=== PATIENT | male | born 1975 | race Caucasian/White ===

== ENCOUNTER 2021-02-20 18:06 | Inpatient (IN) | payer SELFPAY ==
[2021-02-20] VITALS (25 sets, daily range): BP systolic 109–156; BP diastolic 64–94; PULSE 77–102; RESP 16–26; TEMP 36.4; O2SAT 60–100
--- NOTE | ~2021-02-20 | XR_ITS ---
XR chest 1V portable 02/23/2021 06:37 Indication: Respiratory failure Procedure: AP portable chest Comparison: Comparison to multiple prior studies sequentially, with oldest reviewed study dated 02/20. Findings: Persistent diffuse bilateral interstitial infiltrates with focal left basilar consolidation . No significant effusion or pneumothorax. Heart size normal. Impression: 1: Persistent bilateral mixed interstitial and airspace infiltrates which may represent pneumonia or edema. Reviewed, dictated and finalized at location A. Impression: 1: Persistent bilateral mixed interstitial and airspace infiltrates which may r epresent pneumonia or edema.
--- NOTE | ~2021-02-20 | XR_ITS ---
EXAMINATION: XR chest ET placement, XR abdomen NG/feed tube insert DATE: 02/20/2021 18:42 INDICATION: Unresponsive. Endotracheal tube and nasogastric tube placement. TECHNIQUE: 1. Frontal view of the chest was obtained. 2. AP view of the abdomen was obtained. COMPARISON: None FINDINGS: Chest: Endotracheal tube tip 3.4 cm above the juan r. No focal airspace opacities, pulmonary edema, pleural effusion or pneumothorax. Cardiomediastinal silhouette is normal. ABDOMEN: Nasogastric tube with proximal side port in the body of the stomach with distal tip near the gastric pylorus. Cholecystectomy clips in the right upper quadrant. No dilated gas-filled loops of bowel to s uggest obstruction. IMPRESSION: 1. Nasogastric tube tip near the gastric pylorus. Consider withdrawal by 6-8 cm. 2. Endotracheal tube in expected position. No acute cardiopulmonary disease. Reviewed, dictated and finalized at location A. IMPRESSION: 1. Nasogastric tube tip near the gastric pylorus. Consider withdrawal by 6-8 cm . 2. Endotracheal tube in expected position. No acute cardiopulmonary disease.
--- NOTE | ~2021-02-20 | XR_ITS ---
XR chest 1V portable 02/21/2021 06:31 Indication: Respiratory failure Procedure: AP portable chest Comparison: 02/20/2021 Findings: Diffuse left-sided airspace disease. Heart size normal. Diffuse left-sided airspace disease . No significant effusion or pneumothorax. Endotracheal tube tip 4.9 cm above the juan r. NG tube in the stomach. No acute osseous abnormality. Impression: 1: Diffuse asymmetric left-sided airspace disease has progressed, compatible with pneumonia versus as ymmetric edema. Reviewed, dictated and finalized at location A. Impression: 1: Diffuse asymmetric left-sided airspace disease has progressed, compatible wi th pneumonia versus asymmetric edema.
--- NOTE | ~2021-02-20 | XR_ITS ---
XR chest 1V portable 02/22/2021 06:06 Indication: Respiratory failure Procedure: AP portable chest Comparison: Comparison to multiple prior studies sequentially, with oldest reviewed study dated 02/20. Findings: Shallow inspiration. Diffuse bilateral airspace disease. No pleural effusion or pneumothora x. No acute osseous abnormality. Impression: 1: Diffuse bilateral airspace disease may represent edema or pneumonia. Reviewed, dictated and finalized at location A. Impression: 1: Diffuse bilateral airspace disease may represent edema or pneumonia.
--- NOTE | ~2021-02-20 | CT_ITS ---
EXAMINATION: CT brain wo con DATE: 02/21/2021 02:36 INDICATION: Altered mental status TECHNIQUE: Computed tomography (CT) of the head was performed without intravenous contrast. The dose- length product was 681.00 mGy-cm. Automated exposure control and iterative reconstruction technique w ere employed. COMPARISON: CT dated 06/16/2010 FINDINGS: No acute intracranial hemorrhage, infarction, mass or mass effect. There are chronic bifron bharathi subcortical calcifications with moderate white matter disease. No ventriculomegaly or midline sinai ft. Basilar cisterns are patent. Mild mucosal thickening of the maxillary and the ethmoid sinuses. No depressed skull fractures. IMPRESSION: 1. No acute intracranial abnormality. 2: Chronic bifrontal subcortical calcifications with moderate white matter disease. Differential sondra gnosis includes tuberous sclerosis, prior infection and treated lymphoma. Correlate clinically. 3: Chronic age-related findings. Reviewed, dictated and finalized at location A. IMPRESSION: 1. No acute intracranial abnormality. 2: Chronic bifrontal subcortical calcifications with moderate white matter dis ease. Differential diagnosis includes tuberous sclerosis, prior infection and t reated lymphoma. Correlate clinically. 3: Chronic age-related findings.
--- NOTE | 2021-02-20 18:06 | ECG_ITS ---
Rate 106 ND 149 QRSd 126 QT 350 QTc 465 --[place]-- P 39 QRS 33 T 30 SINUS TACHYCARDIA INTRAVENTRICULAR CONDUCTION DELAY BASELINE ARTIFACT- I, II, III, AVR, AVL, AVF, V1-V2, V4-V6 BORDERLINE ECG Electronically Signed On 02-21-2021 17:14:13 CDT by Pillo Hernandez D.O. NO PREVIOUS ECG AVAILABLE FOR COMPARISON [facility]
--- NOTE | 2021-02-20 18:13 | PC.NURSE ---
Resp at bedside bagging pt. Pt prepped for intubation.
--- NOTE | 2021-02-20 18:19 | PC.NURSE ---
Etomidate 30 mg and Succincholine 100 mg given IVP.
--- NOTE | 2021-02-20 18:21 | PC.NURSE ---
8 ET tube placed at 27 lip. color change and breath sounds bilaterally with chest rise and fall with bagging.
--- NOTE | 2021-02-20 18:23 | PC.NURSE ---
16 fr ugarte placed.
--- NOTE | 2021-02-20 18:35 | PC.NURSE ---
[address] placement verified with auscultation.
--- NOTE | 2021-02-20 18:39 | PC.NURSE ---
Propofol infusion started at 5mcg/min.
[2021-02-20] MEDS: PROPOFOL IV EMULSION 100 ML 2.48 MG IV CONT (18:54)
[2021-02-20] MEDS: SODIUM CHLORIDE 0.9% IV 1,000 ML 999 ML IV CONT (18:54)
[2021-02-20 19:08] LABS: Add Urine Microscopic? NO; Appearance Urine Clear (Clear); Bilirubin Urine Negative (Negative); Blood Urine Negative (Negative); Color Urine Yellow (Yellow); Glucose Urine UA Negative (Negative); Ketones Urine Negative (Negative); Leukocyte Esterase Ur Negative LEU/UL (Negative); Nitrate Urine Negative (Negative); Protein Urine Negative (Negative); Specific Grav Ur 1.014 (1.001-1.035); Urobilinogen Urine Negative mg/dL (<2.0)
[2021-02-20 19:09] LABS: Basophils Percent Auto 0.5 % (0.2-1.2); Eosinophils Percent Auto 0.3 % (0-4.4); Hematocrit 45.7 % (42.0-52.0); Hemoglobin 14.9 g/dL (14.0-18.0); Immature Granulocyte Absolute 0.03 K/mm3 (0.00-0.031); Immature Granulocyte Percent A 0.4 % (0-0.5); Lymphocytes Absolute Auto 0.78 K/mm3 (0.9-3.2); Lymphocytes Percent Auto 10.6 % (18.3-44.2); Mean Corpuscular HGB Conc 32.6 g/dl (32-36); Mean Corpuscular Hemoglobin 29.5 pg (26-34); Mean Corpuscular Volume 90.5 fl (80-100); Mean Platelet Volume 9.1 fl (7.4-10.4); Monocytes Absolute Auto 0.4 K/mm3 (0.1-0.6); Monocytes Percent Auto 5.4 % (2.6-8.5); Neutrophils Absolute Auto 6.1 K/mm3 (1.3-6.7); Neutrophils Percent Auto 82.8 % (45.5-73.1); Platelet Count Result 243 k/mm3 (150-375); Red Blood Count 5.05 M/mm3 (4.6-6.20); White Blood Count 7.4 K/mm3 (4.5-10.0)
[2021-02-20 19:18] LABS: Acetaminophen < 10 ug/mL (10-30); Ammonia < 9 umol/L (9-30); Ethanol 53 mg/dL (<10); Salicylate < 1.0 mg/dL (2-20)
--- NOTE | 2021-02-20 19:21 | PC.NURSE ---
at bedside and updated on condition.
[2021-02-20 19:22] LABS: Partial Thromboplastin Time 27.5 SECONDS (22.3-36.8); Prothrombin Time 12.7 Seconds (11.1-14.7)
[2021-02-20 19:23] LABS: Lactic Acid Reflex 1.8 mmol/L (0.7-2.1)
[2021-02-20 19:28] LABS: Amphetamine Screen Urine Negative (Negative); Barbiturate Screen Urine Negative (Negative); Benzodiazepines Screen Urine Positive (Negative); Cannabinoid Screen Urine Negative (Negative); Cocaine Screen Urine Negative (Negative); Methadone Screen Urine Negative (Negative); Opiate Screen Urine Negative (Negative); Phencyclidine Screen Urine Negative (Negative)
[2021-02-20 19:35] LABS: Troponin I < 0.012 ng/mL (0.000-0.034)
[2021-02-20 19:39] LABS: Albumin Level 4.5 g/dL (3.5-5.1); Carbon Dioxide 28 mmol/L (22-30); Estimated CRCL calculation 99 ml/min; Estimated Glomerular Filt Rate > 60
[2021-02-20 20:27] LABS: Alanine Aminotransferase 28 U/L (4-50); Alkaline Phosphatase 66 U/L (38-126); Anion Gap 8 mmol/L (8-16); Aspartate Amino Transferase 34 U/L (17-59); Bilirubin,Total 1.9 mg/dL (0.2-1.3); Blood Urea Nitrogen 18 mg/dL (9-20); Calcium 8.7 mg/dL (8.4-10.2); Chloride 105 mmol/L (98-107); Creatine Kinase 106 U/L (55-170); Glucose 85 mg/dL (65-110); Potassium 3.8 mmol/L (3.4-5.0); Sodium 141 mmol/L (137-145)
[2021-02-20] MEDS: PROPOFOL IV EMULSION 100 ML 9.94 MG IV CONT (20:56)
--- NOTE | 2021-02-20 20:59 | ED.AMS ---
HPI - Altered Mental Status General Chief Complaint: Altered Mental Status Stated Complaint: unresponsive Time Seen by Provider: 02/20/21 18:36 History of Present Illness HPI narrative: Patient presents with altered mental status. History obtained from family and EMS. reports they are discussing divorce he has a history of depression anxiety. Patient believes he may have attempted to try and harm himself. Related Data Home Medications Medication Instructions Recorded Confirmed alprazolam [Xanax] 0.25 mg PO BID 02/20/21 buspirone 10 mg PO BID 02/20/21 sertraline 100 mg PO DAILY 02/20/21 Allergies Allergy/AdvReac Type Severity Reaction Status Date / Time No Known Allergies Allergy Mild Verified 02/20/21 18:58 Review of Systems Review of Systems: ROS unobtainable: Yes unobtainable due to mental status Exam Narrative: GENERAL: Well-appearing, well-nourished, somnolent HEAD: Normocephalic, atraumatic. EYES: PERRLA and EOMI. ENT: Nares clear, no rhinorrhea or epistaxis. Mucous membranes moist. NECK: Supple. No masses. No JVD CHEST: Clear to auscultation. No respiratory distress. No wheezes rales or rhonchi HEART: Regular rate and rhythm. No murmur heard. Normal peripheral pulses. ABDOMEN: Soft, nontender, nondistended, normal active bowel sounds. EXTREMITIES: Normal range of motion. No edema. SKIN: Warm, dry, no rash. NEURO: Minimal response to sternal rub minimal gag. No clonus no rigidity Course Vital Signs Vital signs: Vital Signs Pulse Rate 102 H 02/20/21 18:01 Respiratory Rate 24 H 02/20/21 18:01 Blood Pressure 132/94 H 02/20/21 18:01 Pulse Oximetry 94 02/20/21 18:01 Temperature 36.4 C 02/20/21 18:30 Pulse Rate 78 02/20/21 23:15 Respiratory Rate 18 02/20/21 22:26 Blood Pressure 126/64 02/20/21 22:26 Pulse Oximetry 98 02/20/21 23:15 Procedures Intubation Intubation #1: Intubation Date: 02/20/21 Intubation Time: 18:41 Time out performed: No sedative: Etomidate Mg Given: 30 paralytic: Succinylcholine Mg Given: 100 Laryngoscope: other Tube Size (cm): Cuffed Method of Intubation: orotracheal Number of Attempts: 1 Tube Secured Depth (cm): 29 Tube Secured Location: lips Tube Placement Confirmation: visualized tube passing through cords, equal breath sounds bilaterally, no breath sounds over epigastrium and confirmation by capnometry Patient Tolerated Procedure: no complications Intubation Complications: none MDM - Altered Mental Status MDM Narrative Medical decision making narrative: Patient brought in with altered mental status concern for overdose. Initial arrival patient was nonresponsive to noxious stimuli with minimal gag. There was concern patient was not protecting his airway so he was intubated. Labs and imaging obtained drug screen is notable for benzos and slight elevation in EtOH. Primary concern for ingestion of Zoloft at this time as patient had a prescription filled approximately 1 month ago with 90 tabs and there only 2 tabs left patient was scheduled 100 mg once a day. Patient was admitted for continued monitoring. Lab Data Result diagrams: 02/20/21 19:01 02/20/21 19:01 Labs: Lab Results 02/20/21 02/20/21 02/20/21 Range/Units 18:47 18:47 19:01 WBC 7.4 (4.5-10.0) K/mm3 RBC 5.05 (4.6-6.20) M/mm3 Hgb 14.9 (14.0-18.0) g/dL Hct 45.7 (42.0-52.0) % MCV 90.5 (80-100) fl MCH 29.5 (26-34) pg MCHC 32.6 (32-36) g/dl RDW 14.0 (11.5-14.5) % Plt Count 243 (150-375) k/mm3 MPV 9.1 (7.4-10.4) fl Immature Gran % (Auto) 0.4 (0-0.5) % Neut % (Auto) 82.8 H (45.5-73.1) % Lymph % (Auto) 10.6 L (18.3-44.2) % Clarke % (Auto) 5.4 (2.6-8.5) % Eos % (Auto) 0.3 (0-4.4) % Baso % (Auto) 0.5 (0.2-1.2) % Lymph # (Auto) 0.78 L (0.9-3.2) K/mm3 Clarke # (Auto)
[2021-02-20 21:55] LABS: Lactic Acid Reflex 1.8 mmol/L (0.7-2.1)
[2021-02-21] VITALS (23 sets, daily range): BP systolic 94–140; BP diastolic 53–79; PULSE 74–95; RESP 18–188; TEMP 36.8–37.5; O2SAT 89–99; BMI 23.3; BMI 22.6
--- NOTE | 2021-02-21 01:05 | ECG_ITS ---
Measurements Intervals [place] Rate: 77 P: 32 [place]: 134 QRS: 17 QRSD: 114 T: 37 QT: 407 QTc: 461 Interpretive Statements SINUS RHYTHM INTRAVENTRICULAR CONDUCTION DELAY BORDERLINE ECG Electronically Signed On 02-21-2021 7:26:53 CDT by Pillo Hernandez D.O.
--- NOTE | 2021-02-21 01:19 | PM.IMHP ---
H&P: HPI History of Present Illness Date/Time: 02/21/21 01:19 Chief Complaint: suicide attempt, unreponsiveness Narrative: Patient is a 46 yo male who presents to the ed with unresponsiveness. He was found unresponsive at home and on the ground by his family member. Prior to that he was seen well couple of hours ago. He had open bottle and missing pills by the side. EMS was called and was brought to the ED backing him. In the ED he was unresponsive to noxious stimuli with minimal gag and with concern for not able to protect his airways he was intubated. in the ER reported they are going through divorce and separation and he has underlying history of depression and anxiety. He was noted to be missing 2 pills of his Rusty accepts but large amount of Zoloft tablets missing which he feels about a month ago with 90 tablets of 100 mg. He also has taken an unknown amount of buspirone tablets. Family suspects that he was likely attempted to harm himself. He was intubated and was placed on propofol because of agitation. He was also noted to have slight elevation in his alcohol level in the ER. He is admitted to the ICU for further evaluation and management. Past medical history: Anxiety depression Family history: Unknown Social history: Unknown Review of Systems Review of Systems: ROS unobtainable: Yes unobtainable due to endotracheal tube and unobtainable due to mental status Meds Home Medications and Allergies Home Medications Medication Instructions Recorded Confirmed Type alprazolam [Xanax] 0.25 mg PO BID 02/20/21 History buspirone 10 mg PO BID 02/20/21 History sertraline 100 mg PO DAILY 02/20/21 History Allergies Allergy/AdvReac Type Severity Reaction Status Date / Time No Known Allergies Allergy Mild Verified 02/20/21 18:58 Vital Signs Vital Signs - 24 hr 02/20/21 18:01 02/20/21 18:15 02/20/21 18:21 Temperature Pulse Rate 102 H 95 99 Respiratory Rate 24 H 21 H Blood Pressure 132/94 H 145/85 H Pulse Oximetry 94 93 100 02/20/21 18:30 02/20/21 18:45 02/20/21 18:48 Temperature 97.6 F Pulse Rate 92 86 85 Respiratory Rate 22 H 24 H 22 H Blood Pressure 156/88 H 146/89 H Pulse Oximetry 100 99 08/15/21 18:54 02/20/21 19:00 02/20/21 19:15 Temperature Pulse Rate 85 84 84 Respiratory Rate 22 H 19 18 Blood Pressure 141/91 H 150/91 H Pulse Oximetry 100 100 02/20/21 19:24 02/20/21 19:30 02/20/21 19:31 Temperature Pulse Rate 85 84 85 Respiratory Rate 18 18 18 Blood Pressure 148/91 H Pulse Oximetry 100 100 93 02/20/21 19:50 02/20/21 19:54 02/20/21 20:20 Temperature Pulse Rate 80 79 79 Respiratory Rate 16 16 18 Blood Pressure 135/88 126/64 Pulse Oximetry 60 L 100 100 02/20/21 20:24 02/20/21 20:50 02/20/21 20:51 Temperature Pulse Rate 79 77 82 Respiratory Rate 18 26 H 16 Blood Pressure 137/91 H 109/70 Pulse Oximetry 100 99 100 02/20/21 20:56 02/20/21 21:00 02/20/21 21:02 Temperature Pulse Rate 82 84 78 Respiratory Rate 18 22 H 20 Blood Pressure Pulse Oximetry 02/20/21 21:03 02/20/21 21:11 02/20/21 22:26 Temperature Pulse Rate 78 77 80 Respiratory Rate 20 19 18 Blood Pressure 123/67 126/64 Pulse Oximetry 98 99 100 02/20/21 23:15 Temperature Pulse Rate 78 Respiratory Rate Blood Pressure Pulse Oximetry 98 Exam Narrative: GENERAL: Well-appearing, well-nourished, sedated and intubated HEAD: Normocephalic, atraumatic. EYES: PERRLA ENT: Nares clear, no rhinorrhea or epistaxis. Mucous membranes moist. NECK: Supple. No masses. No JVD CHEST: Clear to auscultation. Bilateral equal in air entry on vent No respiratory distress. HEART: Regular rate and rhythm. No murmur heard. Normal peripheral pulses. ABDOMEN: Soft, nontender, nondistended, normal active bowel sounds. EXTREMITIES: Normal range of motion. No edema. SKIN: Warm, dry, no rash. NEURO: Sedated on vent H&P: Results Labs Labs: Short CBC
[2021-02-21 01:38] LABS: Alveolar/Arterial O2 Gradient 387.7 mmHg; Base Excess ABG -0.6 mEq/l (+/-2.0); Fractional Inspired Oxygen 70 %; HCO3 ABG 22.7 mEq/l (22.0-26.0); Oxygen Content ABG 21.1 %vol (16.0-22.0); Oxygen Saturation ABG 95.7 % (95.0-100.0); Oxyhemoglobin 94.8 % THb (90.0-100.0); PCO2 ABG 33.9 mmHg (35.0-45.0); PO2 FiO2 Ratio Arterial Blood 1.07 %; Total Hemoglobin 15.8 g/dL (12.0-18.0); pH ABG 7.443 (7.350-7.450)
[2021-02-21 01:40] LABS: Device VENTILATOR; Modified Allen's Test Pass; Site Drawn RIGHT RADIAL
[2021-02-21 01:41] LABS: Arterial Blood Gas PEEP 5 cmH2O; Arterial Blood Gas Tidal Volume 480 ml; Arterial Blood Gas Vent Mode CMV; Arterial Blood Gas Ventilator rate 18 /MIN
--- NOTE | 2021-02-21 06:00 | ECG_ITS ---
Measurements Intervals [place] Rate: 84 P: 23 [place]: 134 QRS: 24 QRSD: 112 T: 30 QT: 376 QTc: 444 Interpretive Statements SINUS RHYTHM INTRAVENTRICULAR CONDUCTION DELAY BORDERLINE ECG Electronically Signed On 03-17-2021 12:37:30 CDT by Pillo Hernandez D.O.
[2021-02-21] MEDS: PROPOFOL IV EMULSION 100 ML 9.94 MG IV CONT (07:46)
[2021-02-21] MEDS: ENOXAPARIN 40 MG/0.4 ML SYRINGE SUB-Q (08:45)
[2021-02-21] MEDS: DEXTROSE 5%/0.45% SOD CHL 1,000 ML 100 ML IV CONT (11:11)
[2021-02-21] MEDS: FAMOTIDINE 20 MG TABLET FEED TUBE (13:08)
--- NOTE | 2021-02-21 15:00 | ECG_ITS ---
Measurements Intervals [place] Rate: 106 P: 39 [place]: 149 QRS: 33 QRSD: 126 T: 30 QT: 350 QTc: 465 Interpretive Statements SINUS TACHYCARDIA INTRAVENTRICULAR CONDUCTION DELAY BASELINE ARTIFACT- I, II, III, AVR, AVL, AVF, V1-V2, V4-V6 BORDERLINE ECG Electronically Signed On 02-21-2021 17:14:13 CDT by Pillo Hernandez D.O.
--- NOTE | 2021-02-21 15:31 | WPDCNINT ---
Assessment and Plan Assessment and plan (1) Acute respiratory failure: Code(s): J96.00 - Acute respiratory failure, unspecified whether with hypoxia or hypercapnia Status: Acute Assessment and Plan: Acute Respiratory failure secondary to drug overdose and toxic encephalopathy chest x-ray also suggests aspiration pneumonia Continue full mechanical ventilation support to prevent hypoxemia/hypercarbia and end organ damage. ABG and PCXR reviewed and will repeat in am. Low tidal volume ventilation strategy to prevent volutrauma Will attempt SBT when mental status improved (2) Suicide attempt: Code(s): T14.91XA - Suicide attempt, initial encounter Status: Acute Assessment and Plan: currently sedated intubated once extubated he will have a one-to-one sitter (3) Anxiety and depression: Code(s): F41.9 - Anxiety disorder, unspecified; F32.9 - Major depressive disorder, single episode, unspecified Status: Acute Assessment and Plan: not sure if patient was compliant with his medications at home psych evaluation once patient is extubated and medically stable (4) Drug overdose, multiple drugs: Code(s): T50.911A - Poisoning by multiple unspecified drugs, medicaments and biological substances, accidental (unintentional), initial encounter Status: Acute Assessment and Plan: continue supportive care currently sedated and on mechanical ventilation EKG reviewed QTC and QRS are prolonged but not enough to justify treatment. q.6 hours EKG ordered to monitoring on clinical exam patient does not exhibit any signs of says certain syndrome (5) Toxic encephalopathy: Code(s): G92 - Toxic encephalopathy Status: Acute Assessment and Plan: secondary to drug overdose intubated for airway protection head CT was negative Additional Plan DVT prophylaxis - Lovenox Stress ulcer prophylaxis - and Pepcid Nutrition - NPO Code Status - Full Code Patient's updated at bedside Total Critical Care Time - 30 minutes Due to a high probability of clinically significant, life threatening deterioration, the patient required my highest level of preparedness to intervene emergently and I personally spent this critical care time directly and personally managing the patient. This critical care time included obtaining a history; examining the patient; pulse oximetry; ordering and review of studies; arranging urgent treatment with development of a management plan; evaluation of patient's response to treatment; frequent reassessment; and discussions with other providers. It was exclusive of separately billable procedures and treating other patients and teaching time. Please see Assessment and Plan section and the rest of the note for further information on patient assessment and treatment Director [employer] Consult Note Consult date: 02/21/21 Time Seen: 07:30 HPI: Marco Canas is a 46 year old male with past medical history of depression and bariatric surgery was brought in to ED by EMS for unresponsiveness. patient had argument with his and later his found him unresponsive in his bedroom. she noticed saliva coming out his mouth and small amount of vomitus around him. She states the patient has been depressed and they have been having marital problems. she she claims the patient was taking his medications regularly. a bottle of Xanax which was many years old was found with him and his thinks they were probably 10 pills in it. Also approximately 90 tablets of Zoloft were missing from his bottle.. On arrival to ER his workup was unremarkable patient was unresponsive and was not protecting his airway. he was intubated in the ED and was started on propofol for sedation. head CT was negative and poison Control was contacted. He also had elevated alcohol level and UDS was positive for benzodiazepines. Patient was admitted to ICU for further evaluation man
[2021-02-21 18:12] LABS: Alveolar/Arterial O2 Gradient 220.1 mmHg; Fractional Inspired Oxygen 50 %; HCO3 ABG 26.2 mEq/l (22.0-26.0); Oxygen Content ABG 21.4 %vol (16.0-22.0); Oxygen Saturation ABG 96.5 % (95.0-100.0); PCO2 ABG 43.9 mmHg (35.0-45.0); PO2 FiO2 Ratio Arterial Blood 1.74 %; Total Hemoglobin 15.8 g/dL (12.0-18.0); pH ABG 7.394 (7.350-7.450)
[2021-02-21 18:13] LABS: Site Drawn LEFT RADIAL
[2021-02-21 18:14] LABS: Device VENTILATOR; Modified Allen's Test Pass
[2021-02-21 18:15] LABS: Arterial Blood Gas PEEP 5 cmH2O; Arterial Blood Gas Vent Mode SPONTANEOUS
[2021-02-21 18:16] LABS: Arterial Blood Gas Pressure Support 5 cmH2O
--- NOTE | 2021-02-21 18:43 | PC.NURSE ---
1835-Pt. extubated and put onto 4LNC. VSS. Will continue to monitor.
[2021-02-21] MEDS: SODIUM BICARBONATE 8.4% 50 MEQ/50 ML SYRINGE 100 MEQ IV PUSH (18:45)
--- NOTE | 2021-02-21 21:40 | ECG_ITS ---
Rate 89 [place] 136 QRSd 116 QT 376 QTc 460 --[place]-- P 6 QRS -4 T 28 SINUS RHYTHM INTRAVENTRICULAR CONDUCTION DELAY BORDERLINE ECG Electronically Signed On 02-22-2021 11:19:37 CDT by Pillo Hernandez D.O. COMPARED TO ECG 02/21/2021 14:59:54 NO SIGNIFICANT CHANGES MTDD
[2021-02-21] MEDS: FAMOTIDINE 20 MG TABLET PO (22:25)
[2021-02-21] MEDS: ACETAMINOPHEN 325 MG TABLET 650 MG PO (23:34)
[2021-02-22] VITALS (15 sets, daily range): BP systolic 105–131; BP diastolic 69–84; PULSE 70–92; RESP 18–27; TEMP 36.9–37.1; O2SAT 93–100
[2021-02-22 00:30] LABS: Alveolar/Arterial O2 Gradient 165.5 mmHg; Base Excess ABG 3.9 mEq/l (+/-2.0); Carboxyhemoglobin 0.3 % THb (0-2.0); Fractional Inspired Oxygen 44 %; HCO3 ABG 29.4 mEq/l (22.0-26.0); Methemoglobin ABG 0.5 %THb (0-1.5); Oxygen Content ABG 20.5 %vol (16.0-22.0); Oxygen Saturation ABG 97.3 % (95.0-100.0); Oxyhemoglobin 96.1 % THb (90.0-100.0); PO2 ABG 94.6 mmHg (80.0-100.0); PO2 FiO2 Ratio Arterial Blood 2.15 %; Reduced Hemoglobin 3.1 %THb (0-5.0); Total Hemoglobin 15.1 g/dL (12.0-18.0); pH ABG 7.414 (7.350-7.450)
[2021-02-22 00:31] LABS: Device NASAL CANNULA; Modified Allen's Test Pass; Site Drawn RIGHT RADIAL
[2021-02-22] MEDS: DEXTROSE 5%/0.45% SOD CHL 1,000 ML 100 ML IV CONT (03:05)
[2021-02-22 04:34] LABS: Hematocrit 40.6 % (42.0-52.0); Hemoglobin 13.7 g/dL (14.0-18.0); Mean Corpuscular HGB Conc 33.7 g/dl (32-36); Mean Corpuscular Hemoglobin 29.7 pg (26-34); Mean Corpuscular Volume 88.1 fl (80-100); Mean Platelet Volume 9.8 fl (7.4-10.4); Platelet Count Result 230 k/mm3 (150-375); Red Blood Count 4.61 M/mm3 (4.6-6.20); Red Cell Distribution Width 13.9 % (11.5-14.5); White Blood Count 16.4 K/mm3 (4.5-10.0)
[2021-02-22 04:45] LABS: Alanine Aminotransferase 20 U/L (4-50); Albumin Level 3.6 g/dL (3.5-5.1); Alkaline Phosphatase 63 U/L (38-126); Anion Gap 6 mmol/L (8-16); Aspartate Amino Transferase 24 U/L (17-59); Bilirubin,Total 3.4 mg/dL (0.2-1.3); Blood Urea Nitrogen 25 mg/dL (9-20); Calcium 8.6 mg/dL (8.4-10.2); Carbon Dioxide 29 mmol/L (22-30); Chloride 101 mmol/L (98-107); Estimated CRCL calculation 93 ml/min; Estimated Glomerular Filt Rate > 60; Glucose 110 mg/dL (65-110); Potassium 3.4 mmol/L (3.4-5.0); Sodium 136 mmol/L (137-145)
--- NOTE | 2021-02-22 06:46 | ECG_ITS ---
Rate 77 [place] 139 QRSd 122 QT 401 QTc 456 --[place]-- P 15 QRS 0 T 28 SINUS RHYTHM INTRAVENTRICULAR CONDUCTION DELAY BASELINE ARTIFACT- I, II BORDERLINE ECG Electronically Signed On 02-22-2021 10:05:57 CDT by Pillo Hernandez D.O. COMPARED TO ECG 02/21/2021 21:40:16 NO SIGNIFICANT CHANGES MTDD
[2021-02-22] MEDS: SODIUM BICARBONATE 8.4% 50 MEQ/50 ML SYRINGE 100 MEQ IV PUSH (08:00)
[2021-02-22] MEDS: ENOXAPARIN 40 MG/0.4 ML SYRINGE SUB-Q (09:50)
--- NOTE | 2021-02-22 10:35 | WPDINTPN ---
Progress Note: A&P Assessment and Plan (1) Acute respiratory failure: Code(s): J96.00 - Acute respiratory failure, unspecified whether with hypoxia or hypercapnia Status: Acute Assessment and Plan: Acute Respiratory failure secondary to drug overdose and toxic encephalopathy chest x-ray also suggests aspiration pneumonia patient was extubated yesterday and maintaining saturation on nasal cannula incentive spirometry and up in chair I ordered benzocaine and menthol lozenges p.r.n. for sore throat (2) Suicide attempt: Code(s): T14.91XA - Suicide attempt, initial encounter Status: Acute Assessment and Plan: patient now has one-to-one sitter (3) Anxiety and depression: Code(s): F41.9 - Anxiety disorder, unspecified; F32.9 - Major depressive disorder, single episode, unspecified Status: Acute Assessment and Plan: not sure if patient was compliant with his medications at home psych evaluation once medically stable (4) Drug overdose, multiple drugs: Code(s): T50.911A - Poisoning by multiple unspecified drugs, medicaments and biological substances, accidental (unintentional), initial encounter Status: Acute Assessment and Plan: continue supportive care currently sedated and on mechanical ventilation EKG reviewed QTC is acceptable but QRS was slightly prolonged patient was given bicarb push as per recommendation of poison Control q.6 are EKGs are ordered otherwise clinically he has improved along with improvement in his mental status on clinical exam patient does not exhibit any signs of serotonin syndrome (5) Toxic encephalopathy: Code(s): G92 - Toxic encephalopathy Status: Acute Assessment and Plan: secondary to drug overdose head CT was negative improved and now alert oriented x3 (6) Aspiration pneumonia: Code(s): J69.0 - Pneumonitis due to inhalation of food and vomit Status: Acute Assessment and Plan: continue Zosyn Additional Plan DVT prophylaxis - Lovenox Nutrition - advance diet Code Status - Full Code transfer out of ICU today Subjective Date/time seen: 02/22/21 10:35 patient was extubated yesterday after successful weaning triall in the evening . He maintained his oxygen saturation on nasal cannula. overnight his QRS was prolonged and he was given bicarb. This morning he denies any complaints except sore throat and hoarse voice. Patient denies fever, chest pain, shortness of breath, cough, nausea vomiting, abdominal pain,, diarrhea, headache or constipation. He told me that he does not remember what pills and how many pills he took. He did admit to taking 3 different type of pills but was not forthcoming to give me any further information. Review of Systems Review of Systems: All systems reviewed & are unremarkable except as noted in HPI and below Exam Narrative: General: Pt is alert awake and in NAD Lungs/Chest: Trachea central Clear BS B/L, No crackles or wheezing. His voice is hoarse but no stridor Cardiac: RRR. Normal S1 S2. No murmurs Circulation: Pedal pulses are intact and symmetrical. Abdomen: Normal bowel sounds.. Soft. NT. ND. Extremities: No clubbing, cyanosis or edema. Warm : Temple in place Neurologic: Follows commands. Moves all 4 extremities PERRL alert oriented x3 Skin: No Rash Objective Data Vital Signs Vital Signs: Vital Signs - 24 hr 02/21/21 11:15 02/21/21 12:00 02/21/21 13:40 Temperature 37.1 C Pulse Rate 94 92 91 Respiratory Rate 22 H Blood Pressure 125/73 Pulse Oximetry 94 96 98 02/21/21 14:00 02/21/21 16:00 02/21/21 16:45 Temperature 37.2 C Pulse Rate 89 80 82 Respiratory Rate 19 20 Blood Pressure 116/68 122/76 Pulse Oximetry 97 98 98 02/21/21 18:00 02/21/21 18:35 02/21/21 20:00 Temperature Pulse Rate 91 94 Respiratory Rate 23 H 27 H Blood Pressure 140/77 112/68 Pulse Oximetry 99 96 94 08
--- NOTE | 2021-02-22 10:43 | PCDIET ---
ICU Rounding Note: Patient extubated and advanced to regular diet. Per RN, patient because nauseated earlier today, then ate a banana. Agree with regular diet, as tolerated. Last recorded weight is 74kg which is down from last review. Bowel Motility: No documented BM as of yet. Labs Reviewed: WBC (16.4), Hgb (13.7), Hct (40.6), BUN (25), Na (136) Meds Noted: Zofran prn, Zosyn, Sodium Bicarbonate Additional Notes: No documented skin breakdown. Following daily in ICU rounds. Assessing/reassessing every 3 days.
--- NOTE | 2021-02-22 13:00 | ECG_ITS ---
Rate 77 [place] 134 QRSd 117 QT 390 QTc 442 --[place]-- P 11 QRS 1 T 26 SINUS RHYTHM INTRAVENTRICULAR CONDUCTION DELAY DELAYED PRECORDIAL R/S TRANSITION BORDERLINE ECG Electronically Signed On 02-22-2021 20:07:46 CDT by Pillo Hernandez D.O. COMPARED TO ECG 02/22/2021 06:46:39 NO SIGNIFICANT CHANGES MTDD
[2021-02-22] MEDS: ACETAMINOPHEN 325 MG TABLET 650 MG PO (13:07)
[2021-02-22] MEDS: BISACODYL 5 MG TABLET EC PO (15:48)
--- NOTE | 2021-02-22 19:00 | ECG_ITS ---
Measurements Intervals [place] Rate: 72 P: 4 [place]: 134 QRS: 5 QRSD: 121 T: 28 QT: 391 QTc: 430 Interpretive Statements SINUS RHYTHM INTRAVENTRICULAR CONDUCTION DELAY BORDERLINE ECG Electronically Signed On 03-17-2021 11:05:10 CDT by Pillo Hernandez D.O.
[2021-02-23 02:00] VITALS: PULSE 70
[2021-02-23 04:00] VITALS: PULSE 70
[2021-02-23 04:50] LABS: Hematocrit 40.8 % (42.0-52.0); Mean Corpuscular HGB Conc 31.9 g/dl (32-36); Mean Corpuscular Volume 91.1 fl (80-100); Platelet Count Result 220 k/mm3 (150-375); Red Blood Count 4.48 M/mm3 (4.6-6.20); Red Cell Distribution Width 13.9 % (11.5-14.5)
[2021-02-23 05:06] LABS: Alanine Aminotransferase 20 U/L (4-50); Albumin Level 3.5 g/dL (3.5-5.1); Alkaline Phosphatase 78 U/L (38-126); Anion Gap 6 mmol/L (8-16); Aspartate Amino Transferase 23 U/L (17-59); Bilirubin,Total 3.2 mg/dL (0.2-1.3); Blood Urea Nitrogen 23 mg/dL (9-20); Calcium 9.3 mg/dL (8.4-10.2); Carbon Dioxide 29 mmol/L (22-30); Chloride 105 mmol/L (98-107); Estimated CRCL calculation 104 ml/min; Estimated Glomerular Filt Rate > 60; Glucose 90 mg/dL (65-110); Magnesium 2.1 mg/dL (1.6-2.3); Potassium 3.9 mmol/L (3.4-5.0); Sodium 140 mmol/L (137-145)
[2021-02-23 06:00] VITALS: PULSE 70
[2021-02-23] MEDS: ACETAMINOPHEN 325 MG TABLET 650 MG PO (07:41)
[2021-02-23 08:00] VITALS: BP 130/87; PULSE 66; RESP 29; TEMP 36.6; O2SAT 95
--- NOTE | 2021-02-23 08:00 | ECG_ITS ---
Measurements Intervals [place] Rate: 61 P: -6 [place]: 134 QRS: 1 QRSD: 114 T: 21 QT: 415 QTc: 421 Interpretive Statements SINUS RHYTHM INTRAVENTRICULAR CONDUCTION DELAY BASELINE WANDER- II, III BORDERLINE ECG Electronically Signed On 02-23-2021 9:04:59 CDT by Pillo Hernandez D.O.
[2021-02-23] MEDS: ENOXAPARIN 40 MG/0.4 ML SYRINGE SUB-Q (08:55)
--- NOTE | 2021-02-23 09:06 | PC.NURSE ---
PATIENT CLEARED BY POISON CONTROL 02/22/21 @ 1730.
[2021-02-23 10:00] VITALS: PULSE 63
--- NOTE | 2021-02-23 10:11 | PCDIET ---
Nutrition Follow-Up Complete: Nutrition Diagnosis: Inadequate oral intake related to oral intubation as evidenced by NPO status. Nutrition Goal: Patient to meet estimated nutritional needs. Goal not met. Patient consumed 0-10% of meals yesterday on regular diet. Patient reports nausea has resolved, but c/o sore throat from ETT and hiccups. Small, frequent meals encouraged. Dietary will also provide soft/moistened foods, upon request. Recommend adding Ensure Compact (220kcal, 10g protein) with meals. Patient agreeable. Last recorded weight is 74 kg which is stable. Bowel Motility: BM x 2 today. Labs Reviewed: WBC (14.0), RBC (4.48), Hgb (13.0), Hct (40.8), BUN (23) Meds Noted: Dulcolax prn, Miralax prn, Zosyn Additional Notes: No documented skin breakdown. Will continue to monitor with same goal. Nutrition Monitoring and Evaluation: Follow up every 3 days.
--- NOTE | 2021-02-23 11:52 | PM.DS ---
DS: Admitting Diagnosis Admitting Diagnosis Suicide attempt Acute respiratory failure DS: Discharge Diagnosis Discharge Diagnosis (1) Toxic encephalopathy: Code(s): G92 - Toxic encephalopathy Status: Acute (2) Drug overdose, multiple drugs: Code(s): T50.911A - Poisoning by multiple unspecified drugs, medicaments and biological substances, accidental (unintentional), initial encounter Status: Acute (3) Acute respiratory failure: Code(s): J96.00 - Acute respiratory failure, unspecified whether with hypoxia or hypercapnia Status: Acute (4) Suicide attempt: Code(s): T14.91XA - Suicide attempt, initial encounter Status: Acute DS: Summary Hospital Course Hospital Course: This is a 46-year-old gentleman with past medical history of depression, gastric surgery, was admitted after he was found unresponsive, after he took multiple pills of sertraline and Xanax. On arrival to the emergency department, he was not, and was intubated. He was admitted to the ICU. CT of the head was negative. He also had elevated alcohol level and urine drug screen was positive for benzodiazepines. During hospitalization he was hemodynamically stable, however chest x-ray did suggest aspiration pneumonia, he was able to wean from the ventilator and extubated the next day. Given concern for aspiration pneumonia, was initiated on Zosyn. Will discharge on Augmentin to finish a 7 day course. Supportive care was continued. At some point he had slightly prolonged QTC, communication with present bicarb was given, QTC improved. Serial EKGs were monitored. Patient clinically improved, denied any current suicidal ideation, signed contract. Stable for discharge to home. Time Spent with Patient Time attestation: Total time spent providing and/or coordinating discharge services: 25 min Exam Narrative: Gen: Alert, NAD Abd: Soft, NT, ND Heart: RRR Lungs: CTAB Ext: No lower extremity edema DS: Data Data Completed and Pending Labs on day of discharge: Labs from last 24 hours 02/23/21 02/23/21 04:30 04:30 WBC 14.0 H RBC 4.48 L Hgb 13.0 L Hct 40.8 L MCV 91.1 MCH 29.0 MCHC 31.9 L RDW 13.9 Plt Count 220 MPV 10.0 Sodium 140 Potassium 3.9 Chloride 105 Carbon Dioxide 29 Anion Gap 6 L BUN 23 H Creatinine 0.80 Estim Creat Clear Calc 104 Estimated GFR > 60 Glucose 90 Calcium 9.3 Magnesium 2.1 Total Bilirubin 3.2 H AST 23 ALT 20 Alkaline Phosphatase 78 Total Protein 6.0 L Albumin 3.5 Discharge Plan Discharge Consulting providers: Hu Negrete Discharging Clinician: Casa Woodard Patient Disposition: Home, Self-Care Activity: as tolerated Diet: regular Patient Instructions: Antibiotic Form Stand Alone Forms: General Discharge Information Follow-up/Referrals: Eron Bhatia MD [Primary Care Provider] - (Follow up within 1-2 weeks of discharge to reassess clinical stability. ) Discharge Medications: New amoxicillin-pot clavulanate [Augmentin] 875-125 mg tablet 1 tablet PO Q12H Qty: 10 RF: 0 Continued sertraline 100 mg Tablet 100 mg PO DAILY RF: 0 buspirone 10 mg Tablet 10 mg PO BID RF: 0 Date of admission: 02/20/21 21:15 Primary Care Provider: Eron Bhatia Admitting Provider: Braeden Castro Attending physician on admission: Braeden Castro Condition: Stable
== END 2021-02-23 12:56 | disposition home or self-care (01) | DRG 812 ==
LOC: ANHED 21:25 → ANHICU 02-23 12:03
PROVIDERS: Internal Medicine; Admitting Provider Internal Medicine; Emergency Provider Emergency Medicine; PCP Family Medicine Adolescent Medicine; Visit Provider Internal Medicine Nephrology
DX: T43.222A Poisoning by selective serotonin reuptake inhibitors, intentional self-harm, initial encounter (principal); T42.4X2A Poisoning by benzodiazepines, intentional self-harm, initial encounter; J96.00 Acute respiratory failure, unspecified whether with hypoxia or hypercapnia; J69.0 Pneumonitis due to inhalation of food and vomit; G92 Toxic encephalopathy; F41.9 Anxiety disorder, unspecified; F32.9 Major depressive disorder, single episode, unspecified
CPT/HCPCS: 31500; 36415; 36600; 70450; 71045; 80053; 80307; 81003; 82140; 82248; 82375; 82550; 82805; 83050; 83605; 83735; 84443; 84484; 85025; 85027; 85610; 85730; 93005; 94002; 94003; 96361; 96374; 99285; A9270; J1650; J2543; J2704; J7030

== ENCOUNTER 2023-06-21 07:24 | Day surgery (SDC) | payer OTHER, SELFPAY ==
[2023-05-25 10:26] VITALS: BMI 31.9
[2023-06-14 11:51] VITALS: BMI 29.2
[2023-06-21 08:39] VITALS: BP 141/98; PULSE 73; RESP 16; TEMP 36.3; O2SAT 99
[2023-06-21] MEDS: LACTATED RINGERS 1,000 ML 150 ML IV CONT (08:54)
--- NOTE | 2023-06-21 09:03 | PM.HPGS ---
History of Present Illness History of Present Illness Consent: Risks, benefits, and alternatives have been discussed and questions answered. Patient agrees to proceed with procedure. Chief complaint: Neoplasm Screening Narrative: Marco Canas is a 48 year old male Presents for screening colonoscopy. Patient's current weight appetite and bowel movements are normal. Patient denies abdominal pain. He has had no bleeding. Family history noncontributory. Review of Systems Review of Systems: Review of systems noncontributory. 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 Suicide attempt (02/2021) Surgical History Surgical History Bariatric surgery status History of bilateral carpal tunnel release Family History Family History (Updated 05/23/23 @ 10:14 by Wendy Alexander APRN) Mother Anemia Social History Social History Smoking status: Former smoker Tobacco type: cigarettes Second hand tobacco smoke exposure: Yes Alcohol intake: former Drinks per week: 1 Substance use: unknown Living arrangements: with family Spiritual care concerns: No Meds Home Medications and Allergies Home Medications Medication Instructions Recorded Confirmed Type needle (disp) 27 gauge 27 gauge x #100 ea 05/23/23 05/23/23 Rx 1 1/2 (BD PrecisionGlide) syringe with needle 3 mL 20 gauge #100 ea 05/23/23 05/23/23 Rx x 1 1/2 (BD Luer-Huong Syringe) testosterone cypionate 200 mg/mL 200 mg IM .every 2 weeks #10 mL 06/14/23 06/21/23 Rx intramuscular oil Allergies Allergy/AdvReac Type Severity Reaction Status Date / Time No Known Allergies Allergy Mild Verified 06/21/23 08:38 Vital Signs Vital Signs - 24 hr 06/21/23 08:39 Temperature 97.4 F L Pulse Rate 73 Respiratory Rate 16 Blood Pressure 141/98 H Pulse Oximetry 99 Oxygen Delivery Room Air Exam Narrative: physical exam reveals patient to be alert. Signs stable. HEENT exam is unremarkable. Patient is anicteric. Lungs are clear to auscultation and to percussion. Is without murmur or extra sounds. Abdomen bowel sounds are present soft nontender with no organomegaly. Digital external rectal exam is normal. Assessment and Plan Assessment and plan (1) Colon cancer screening: Code(s): Z12.11 - Encounter for screening for malignant neoplasm of colon Status: Acute Assessment and Plan: Presents today for screening colonoscopy. He appears to be at average risk for colon polyps. Further recommendations may be given after endoscopy.
--- NOTE | 2023-06-21 09:13 | WPDANESEPPF ---
Anes - Initial Pre Proc Eval Procedure: Operation Date: 06/21/23 10:00 Proposed Procedures p Screening Colonoscopy - Marco Nguyen MD Date/Time: 06/21/23 09:13 Surgeon: Marco Nguyen MD Pre Op Diagnosis: Neoplasm Screening Patient Data Age: 48 Gender: M Height: 1.83 m Weight: 97.6 kg Last Vital Signs Temp 36.3 C L 06/21/23 08:39 Pulse 73 06/21/23 08:39 Resp 16 06/21/23 08:39 BP 141/98 H 06/21/23 08:39 Pulse Ox 99 06/21/23 08:39 O2 Del Method Room Air 06/21/23 08:39 Allergies Allergy/AdvReac Type Severity Reaction Status Date / Time No Known Allergies Allergy Mild Verified 06/21/23 08:38 Home Medications Medication Instructions Recorded Confirmed Type needle (disp) 27 gauge 27 gauge x #100 ea 05/23/23 05/23/23 Rx 1 1/2 (BD PrecisionGlide) syringe with needle 3 mL 20 gauge #100 ea 05/23/23 05/23/23 Rx x 1 1/2 (BD Luer-Huong Syringe) testosterone cypionate 200 mg/mL 200 mg IM .every 2 weeks #10 mL 06/14/23 06/21/23 Rx intramuscular oil Patient hx anesthesia problems: none Family hx anesthesia problems: none Results Review: All pre-operative results and documents have been reviewed as part of the pre-operative evaluation. 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 Suicide attempt (02/2021) Surgical History Surgical History Bariatric surgery status History of bilateral carpal tunnel release Family History Family History Mother Anemia Social History Social History Smoking status: Former smoker Tobacco type: cigarettes Second hand tobacco smoke exposure: Yes Alcohol intake: former Drinks per week: 1 Substance use: unknown Living arrangements: with family Spiritual care concerns: No Anes - Eval Final PreProcedure Day of Procedure 06/21/23 09:13 Patient weight: overweight Heart: regular rate and rhythm Lungs: clear to auscultation Airway: Mallampati scale class II Neurological: alert and oriented Last oral intake: >/= 8 hours ASA classification: III Emergent: no Anesthetic plan: proceed Anesthesia type and monitoring: general GIVS and standard monitoring Results Review: All pre-operative results and documents have been reviewed as part of the pre-operative evaluation. Informed Consent: The patient's anesthetic plan and its attendant risks and benefits were discussed with the patient/family/POA. Questions were solicited and answers provided to the satisfaction of the patient/family/POA.
[2023-06-21 10:37] VITALS: BP 99/64; PULSE 70; RESP 16; O2SAT 96
[2023-06-21 10:47] VITALS: BP 112/63; PULSE 58; RESP 18; O2SAT 97
[2023-06-21 10:57] VITALS: BP 117/77; PULSE 71; RESP 20; O2SAT 100
--- NOTE | 2023-06-21 11:11 | WPDANESPN ---
Anes - Prog Note Post-Op Date/Time: 06/21/23 11:11 Cardiovascular status: normal Respiratory status: normal Airway patency: baseline Mental status: baseline Post-Op hydration status: normal Vital Signs: Last Vital Signs Temp 36.3 C L 06/21/23 08:39 Pulse 58 L 06/21/23 10:47 Resp 18 06/21/23 10:47 BP 112/63 06/21/23 10:47 Pulse Ox 97 06/21/23 10:47 O2 Del Method Room Air 06/21/23 10:47 Pain Score (VAS): 0/10 I/O: Intake & Output 06/20/23 06/21/23 06/21/23 23:59 07:59 15:59 Intake Total 600 Balance 600 Patient Feedback: Patient satisfied with anesthetic care.
== END 2023-06-21 11:13 | disposition home or self-care (01) ==
PROVIDERS: PCP Family Medicine Adolescent Medicine; Visit Provider Internal Medicine Gastroenterology
PROC: 0DJD8ZZ Inspection of Lower Intestinal Tract, Via Natural or Artificial Opening Endoscopic (ICD-10-PCS; CPT 45378; principal; 2023-06-21 10:00)
DX: Z12.11 Encounter for screening for malignant neoplasm of colon (principal); K57.30 Diverticulosis of large intestine without perforation or abscess without bleeding; K64.8 Other hemorrhoids
CPT/HCPCS: 45378

== ENCOUNTER 2024-08-05 11:30 | Emergency (ER) | payer OTHER, BC, SELFPAY ==
--- NOTE | ~2024-08-05 | XR_ITS ---
EXAMINATION: XR finger 1st RT min 2V DATE: 08/05/2024 11:56 INDICATION: Right thumb injury. TECHNIQUE: 3 views of right thumb were obtained. COMPARISON: None. FINDINGS: Alignment is normal. No fracture. There is mild osteoarthritis of first carpometacarpal amanda nt and first metacarpophalangeal joint. IMPRESSION: 1. No fracture. Reviewed, dictated and finalized at location A. GATOR VALVE PIPE IMPRESSION: 1. No fracture.
[2024-08-05 11:45] VITALS: BP 136/84; PULSE 98; RESP 18; TEMP 36.9; O2SAT 98
--- NOTE | 2024-08-05 12:15 | ED.GENADULT ---
HPI - General Adult General Chief complaint: Extremity Injury, Upper Stated complaint: Right Thumb Injury Source: patient Mode of arrival: ambulatory Limitations: no limitations History of Present Illness HPI narrative: Patient presents for evaluation of pain in the right thumb. Symptom onset around 11:00 a.m. this morning. 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 He states that his coworkers had to assist him in getting the digit dislodged. He now reports 6/10 pain in the affected digit. He has associated numbness. He is having difficulty moving at the MCP and interphalangeal joint of the right thumb. Date of last tetanus unknown. He is not diabetic. Related Data Allergies Allergy/AdvReac Type Severity Reaction Status Date / Time No Known Allergies Allergy Mild Verified 08/05/24 11:56 Review of Systems Review of Systems: CONSTITUTIONAL: Denies fever, chills, or sweats. EYES: Denies visual changes, redness, or discharge. ENT: Denies rhinorrhea, congestion, sore throat, or otalgia. CARDIOVASCULAR: Denies chest pain, palpitations, or edema. RESPIRATORY: Denies cough or dyspnea. GASTROINTESTINAL: Denies abdominal pain, nausea, vomiting, or diarrhea. GENITOURINARY: Denies dysuria or hematuria. SKIN: Denies rash or itching. MUSCULOSKELETAL: Reports pain and decreased range of motion in the right thumb NEUROLOGIC: Reports numbness in the right thumb. Denies headache, dizziness, or weakness. PSYCHIATRIC: Denies anxiety or depression. 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 Depression Drug overdose, multiple drugs (02/2021) Suicide attempt (02/2021) Surgical History Surgical History History of bilateral carpal tunnel release Bariatric surgery status Family History Family History Mother Anemia Social History Social History Social History: only smoked as a teen, no alcohol since 2021 Smoking status: Former smoker Tobacco type: cigarettes Second hand tobacco smoke exposure: Yes Alcohol intake: former Drinks per week: 1 Substance use: unknown Living arrangements: with family Spiritual care concerns: No Exam Narrative: GENERAL: Well-appearing, well-nourished, and in no acute distress. HEAD: Normocephalic, atraumatic. EYES: PERRLA and EOMI. ENT: Nares clear, no rhinorrhea or epistaxis. Mucous membranes moist. Oropharynx without tonsillar hypertrophy exudate or other lesions. Bilateral TMs pearly ko nonbulging NECK: Supple. No adenopathy or masses. No carotid bruits or JVD CHEST: Clear to auscultation. No respiratory distress. No wheezes rales or rhonchi HEART: Regular rate and rhythm. No murmur heard. Normal peripheral pulses. ABDOMEN: Soft, nontender, nondistended, normal active bowel sounds. EXTREMITIES: Unable to flex at the interphalangeal and MCP joints of the right thumb. There is tenderness throughout the right thumb. No significant swelling. SKIN: Warm, dry, no rash. NEURO: No focal deficits. Alert and oriented x3. PSYCH: Normal mood and affect. Course Course Emergency Course: This is a 49-year-old male who presented for evaluation of pain in the right thumb after an injury at work just prior to arrival. X-ray was negative for fracture. I am concerned he has a tendon injury. Was placed in a thumb spica splint was advised to follow-up with workmen's compensation/hand surgeon. He was updated on tetanus. He declined pain medication while here and upon discharge. Increase hydration. [id number] agents for symptom management. Follow up with primary provider. Go to the ER for worsening symptoms. Patient in agreement with plan of care. Level of Care: Express Care Visit Vital Signs Vital signs: Vital Signs Temperature 36.9 C 08/05/24 11:45 Pulse Rate 98 08/05/24 11:45 Respiratory Rate 18 08/05/24 11:45 Blood Pressure 136/84 08/05/24 11:45 Pulse Oximetry 98 08/05/24 11:45 Oxygen Delivery Room Air 08/05/24 11:45 Temperature 36.9 C 08/05/24 11:45 Pulse Rate 98 08/05/24 11:45 Respiratory Rate 18 08/05/24 11:45 Blood Pressure 136/84 08/05/24 11:45 Pulse Oximetry 98 08/05/24 11:45 Oxygen Delivery Room Air 08/05/24 11:45 Medical Decision Making Vital Signs Vital Signs: Vital Signs Temperature 36.9 C 08/05/24 11:45 Pulse Rate 98 08/05/24 11:45 Respiratory Rate 18 08/05/24 11:45 Blood Pressure 136/84 08/05/24 11:45 Pulse Oximetry 98 08/05/24 11:45 Oxygen Delivery Room Air 08/05/24 11:45 Temperature 36.9 C 08/05/24 11:45 Pulse Rate 98 08/05/24 11:45 Respiratory Rate 18 08/05/24 11:45 Blood Pressure 136/84 08/05/24 11:45 Pulse Oximetry 98 08/05/24 11:45 Oxygen Delivery Room Air 08/05/24 11:45 Imaging Data Radiologist's impression: EXAMINATION: XR finger 1st RT min 2V DATE: 08/05/2024 11:56 INDICATION: Right thumb injury. TECHNIQUE: 3 views of right thumb were obtained. COMPARISON: None. FINDINGS: Alignment is normal. No fracture. There is mild osteoarthritis of first carpometacarpal joint and first metacarpophalangeal joint. IMPRESSION: 1. No fracture. Discharge Plan Discharge Clinical Impression: Crushing injury of right thumb Patient Disposition: Home, Self-Care Condition: Stable Instructions: Antibiotic Form, Contusion in Adults (ED), Crush Injury (ED) Patient Language: Albanian Prescriptions: No Action (DME) syringe with needle [BD Luer-Huong Syringe] 3 mL 20 gauge x 1 1/2 syringe See Rx Instructions .Route Qty: 100 1RF Rx Instructions: As directed (DME) BD PrecisionGlide 27 gauge x 1 1/2 needle See Rx Instructions .Route Qty: 100 0RF Rx Instructions: As directed testosterone cypionate 200 mg/mL oil 200 mg IM .every 2 weeks Qty: 10 0RF Rx Instructions: as a single dose Follow-up/Referrals: Dora Garcia MD [Physician] - Eron Bhatia MD [Primary Care Provider] - Time of Disposition: 12:23
[2024-08-05] MEDS: TETANUS,DIPHTHERIA,AC PERTUSSIS ADULT (0.5 ML) BOOSTRIX IM (12:38)
--- OUTSIDE RECORDS SUMMARY | 2024-08-05 12:42 | XMS_ITS | Continuity of Care Document ---
Author Organization [facility] Address [address] [place] [address] Phone Care Team Providers Care Treasury Assistant Name Role Phone Gerry Vogt MD Unavailable Unavailable Allergies, Adverse Reactions, Alerts Substance Reaction Status Criticality No Known Allergies Active No Inform ation Medications Medication Instructions Dosage Effective Dates (start - stop) Status Comments Keflex 500 mg capsule take 1 capsule by oral route every 8 hours 500 MG - Active [place] 5 mg-325 mg tablet take 1 or 2 tablets every 4-6 hours prn pain - Active Keflex 500 mg capsule take 1 capsule by oral route every 8 hours 500 MG - Active [place] 5 mg-325 mg tablet take 1 tablet by oral route every 6 hours as needed for pain - Active Procedures Procedure Date OFFICE/OUTPATIENT VISIT EST OFFICE/OUTPATIENT VISIT EST OFFICE/OUTPATIENT VISIT EST OFFICE/OUTPATIENT VISIT [facility] Advance Directives Directive Yes / No Effective Date File Name No Information Encounters Encounter Description Practice Location Reason(s) For Visit Diagnoses Date Provider Providers Copied on Encounter OFFICE/OUTPA TIENT VISIT EST [facility], [address], [address], [place] [phone] [facility] Laceration with foreign body of left hand, subsequent encounter 7 Sin Garrett. [address] [place], [place], [id number] . tel: [phone] OFFICE/OUTPA TIENT VISIT EST [facility], [address], [address], [place] [phone] [facility] Laceration with foreign body of left hand, subsequent encounter 7 Sin Garrett. [address] [place], [place], [id number] . tel: [phone] OFFICE/OUTPA TIENT VISIT [facility], [address], [address], [phone] [facility] Follow Up of WC L hand (chief complaint) Laceration with foreign body of left hand, subsequent encounter 0- 7 Sin Garrett. [address] [place], [place], [id number] . tel: [phone] OFFICE/OUTPA TIENT VISIT [facility], [address] [place] [address], [address], [phone] [facility] Body mass index (BMI) 36.0-36.9, adultLaceration of left hand with foreign body, initial encounter 7 Sin Garrett. [address] [place], [place], [id number] . tel: [phone] Family History Family Member Type Diagnosis Age At Onset Mother Problem (finding) Alive and well Payers Payer name Insurance type Covered constitution party ID Authoriza tion(s) No Information Social History Type Description Quantity Date Captured Comments Alcohol Use Details Unknown Caffeine Use Details Unknown Tobacco Use Status No Information Smoking Status No Information Sex Male Chief Complaint And Reason For Visit No Information Reason For Referral Reason For Referral No Information History Of Present Illness Encounter Date Complaint History Of Prese nt Illness Follow Up of WC L hand Functional Status Date Functional Assessmen t No Information Instructions Date Instruction Additional Infor markion Giving encouragement to exercise Related to Body mass index (BMI) 36.0-36.9, adult Assessments Type Assessment Date assessment Laceration with fore ign body of left hand, subsequent encounter Patient Care Teams Name Effective Dates (start - stop) Status Members No Information
--- OUTSIDE RECORDS SUMMARY | 2024-08-05 12:42 | XMS_ITS | Clinical Summary ---
Author Organization [facility] Address [address] [place] [address] Care Team Providers Care Registered Nurse Supervisor Name Role Phone Eron Bhatia MD Primary Care Prov ider Allergies No known active allergies Medications ketorolac (TORADOL) 10 mg tablet Take 1 tablet (10 mg total) by mouth every 6 (six) hours as needed for pain 20 tablet 12/15/2022 Active cyclobenzaprine (FLEXERIL) 10 mg tablet Take 1 tablet (10 mg total) by mouth 2 (two) times a day as needed for muscle spasms 20 tablet 12/15/2022 Active Social History Tobacco Use Types Packs/Day Years Used Date Smoking Tobacco: Never Assessed Personal Safety Answer Date Recorded Getting School Help Needed Not on file 12/24 Sex and Gender Information Value Date Recorded Sex Assigned at Not on file Legal Sex Male 10:03 AM [employer] Gender Identity Not on file Sexual Orientation Not on file Last Filed Vital Signs Vital Sign Reading Time Taken Comments Blood Pressure 114/76 12/15/2022 3:35 PM CDT Pulse 70 12/15/2022 3:35 PM CDT Temperature 36.9 ??C (98.5 ??F) 12/15/2022 3:35 PM CD T Respiratory Rate 16 12/15/2022 3:35 PM CDT Oxygen Saturation 99% 12/15/2022 3:35 PM CDT Inhaled Oxygen Concentration - - Weight 95.4 kg (210 lb 5.1 oz) 12/15/2022 1:32 P M CDT Height 177.8 cm (5' 10 ) 12/15/2022 1:32 PM CDT Body Mass Index 30.18 12/15/2022 1:32 PM CDT Plan of Treatment Health Maintenance Due Date Last Done Comments Colon Cancer Screening-Colonoscopy 1974 Depression Screening 1974 Hepatitis C Screening 1974 Prostate Cancer Screening-PSA 1974 DTaP/Tdap/Td Vaccine (1 - Tdap) 1985 Hepatitis B Screening 01/04/1992 Regular Well Visit/Exam 18-64 01/04/1992 Zoster Vaccine (1 of 2) 01/04/2024 Covid-19 Vaccine (3 - 2023-2 5 season) 2024 10/29/2020, 10/11/2020 Influenza Vaccine (#1) 2024 06/07/2017 Pneumococcal vaccine <65 Aged Out No longer eligible based on patient's age to complete this topic Insurance [employer]RA Care Teams Registered Nurse Supervisor Relationship Specialty Start Date End Date Eron Bhatia MD [address] [place] [id number] PCP - General Family Medicine 12/15/22
--- OUTSIDE RECORDS SUMMARY | 2024-08-05 12:42 | XMS_ITS | Clinical Summary ---
Author Organization [facility] Address [address] [place] [address] Care Team Providers Care Veterinary Pathologist Name Role Phone Unavailable Primary Care Provider Unavailabl e Source Comments [facility],non-owned Affiliates and Associated Physician Practices is amultiple site organization consisting of ambulatory clinics and hospital sitesin [place] and [place]. This disclosure is being madepursuant to the Care Everywhere program and may not contain all information available regarding this patient. Last updated 18.[facility] Social History Tobacco Use Types Packs/Day Years Used Date Smoking Tobacco: Never Assessed Sex and Gender Information Value Date Recorded Sex Assigned at Not on file Gender Identity Not on file Sexual Orientation Not on file Plan of Treatment Health Maintenance Due Date Last Done Comments COLOGUARD (AGES 45-75) - COL ON CA SCREENING 1974 COLON MONITORING 1974 COLONOSCOPY - COLON CA SCREENING 1974 CT COLONOGRAPHY - COLON CA SCREENING 1974 Colorectal Cancer Screening 1974 FIT - COLON CA SCREENING 1974 FLEX SIG - COLON CA SCREENING 1974 LIPID TESTING 1974 HIV SCREENING 1989 HEPATITIS C SCREENING 12/30/1991 DTAP/TDAP/TD VACCINES (1 - Tdap) 1993 HEPATITIS B VACCINE (1 of 3 - 19+ 3-dose series) 1993 PNEUMOCOCCAL VACCINE 50+ (1 of 1 - PCV) 01/04/2024 ZOSTER VACCINE (1 of 2) 01/04/2024 COVID-19 VACCINE ( - 2023-2 5 season) 2024 INFLUENZA VACCINE (#1) 2024 DEPRESSION SCREENING 07/09/2024 HIB VACCINE Aged Out No longer eligi ble based on patient's age to complete this topic HPV VACCINE Aged Out No longer eligi ble based on patient's age to complete this topic MENINGOCOCCAL (Group B) VACCINE Aged Out No longer eligible based on patient's age to complete this topic MENINGOCOCCAL VACCINE Aged Out No payam forest eligible based on patient's age to complete this topic PNEUMOCOCCAL VACCINE Aged Out No long er eligible based on patient's age to complete this topic
--- OUTSIDE RECORDS SUMMARY | 2024-08-05 12:42 | XMS_ITS | Continuity of Care Document ---
Author Organization [email or web address] Address [address] [place] [address] Phone Care Team Providers Care Metal Fabricating Supervisor Name Role Phone Edilma Vaughan MD Unavailable Unavailable Allergies, Adverse Reactions, Alerts Substance Reaction Status Criticality aspirin Anaphylaxis Active No Information penicillin G Anaphylaxis Active No Information Medications Medication Instructions Dosage Effective Dates (start - stop) Status Comments BD 5 ML SYRINGE 1 Q WEEK - Active DELATESTRYL 200 MG/ML VIAL 1 Q WEEK - Active SIMVASTATIN 40 MG TABLET 1 QHS - Active 04/20/09 [facility] DOXYCYCLINE HYCLATE 100 MG CAP 1 BID - No Longer Active AUGMENTIN 875-125 TABLET 1 BID - No Longer Active new rx with no addl dt 12-17-09 AUGMENTIN 875-125 TABLET 1 BID - No Longer Active new rx with no addl dt 12-17-09 SIMVASTATIN 40 MG TABLET 1 QHS - No Longer Active SIMVASTATIN 20MG TABS 1 QHS - No Longer Active DIOVAN 160MG TABS 1 QD-daily No Longer Active NEXIUM 40 MG CAPSULE 1 QD-daily - No Longer Active 11/02/06 [facility] sf LEXAPRO 10 MG TABLET 1 DAILY - No Longer Active 11/02/06 [facility]. sf TOPROL XL 50 MG TABLET SA 1 QD-daily - No Longer Active 11/02/06 [facility] to [facility] ALTACE 10 MG CAPSULE 1 QD-daily - No Longer Active 05/23/06 [facility] sf HELENA 180 MG TABLET 1 DAILY - No Longer Active 04/24/06 okayed refill with generic LEXAPRO 10 MG TABLET 1 DAILY - No Longer Active HELENA 180 MG TABLET 1 DAILY - No Longer Active 04/24/06 okayed refill with generic NASACORT AQ NASAL SPRAY 1 QD - No Longer Active 03/23/06 faxed to [facility] ALTACE 10MG CAPS 1 QD - No Longer Active 03/20/06 F[facility]ed to [facility] for mailorder. sf ALTACE 5MG CAPS 1 QD - No Longer Active LEXAPRO 10MG TABS 1 QD No Longer Active HELENA 180 MG TABLET 1 QD - No Longer Active NASACORT AQ NASAL SPRAY 1 QD - No Longer Active TOPROL XL 50MG TABS 1 QD No Longer Active NASACORT AQ 55MCG APPLICS 1 QD - No Longer Active NEXIUM 40MG CAPS 1 QD - No Longer Active HELENA 180MG TABS 1 QD No Longer Active ZYRTEC 10 MG TABLET 1 QD No Longer Active ZYRTEC 10MG TABS 1 QD - No Longer Active TRAMADOL HCL 50MG TABS 1 DIRECTE - No Longer Active IBUPROFEN 800MG TABS 1 DIRECTE - No Longer Active ZITHROMAX 250MG CAP(S) 1 DIRECTE - No Longer Active Advance Directives Directive Yes / No Effective Date File Name No Information Encounters Encounter Description Practice Location Reason(s) For Visit Diagnoses Date Provider Providers Copied on Encounter [facility], [address], [place], [place], [address] , tel: [phone] [facility] No Information 1 Alexus France. [address], [address], [place], [place], [address], [place]. tel: [phone] [facility], [address], [place], [place], [address] , tel: [phone] [facility] HEADACHEBELL'S PALSY 0 Alexus France. [address], [place], [place], [address], . tel: [phone] [email or web address], [address], [place], [place], [address] , tel: [phone] [facility] SCREEN LIPOID DISORDERSROUTINE MEDICAL EXAMMALAISE AND FATIGUE NECSCREENING-PULM ONARY TB 0 Alexus France. [address], [address], [place], [place], [address], [place]. tel: [phone] [facility], [address], [place], [place], [address] , [place] tel: [phone] [facility] HYPERLIPIDEMIA NEC/NOS 0 Conversion Doctor. [address], [place], [address], [place]. [facility], [address], [place], [place], [address] , tel: [phone] [facility] LONG-TERM USE MEDS NEC 0 Alexus France. [address], [place], [place], [address], . tel: [phone] [facility], [address], [place], [place], [address] , [place] tel: [phone] [facility] VACCINATION FOR DTP-DTAPBENIGN HYPERTENSION 9 Alexus France. [address], [place], [place], [address], [place]. tel: [phone] [email or web address], [address], [place], [place], [address] , [place] tel: [phone] [facility] DEPRESSIVE DISORDER NEC 1200 8 Conversion Doctor. [address] [place], [address], [place]. [email or web address], [address], [place], [place], [address] , tel: [phone] [facility] ESOPHAGEAL REFLUX 9200 7 Conversion Doctor. [address] [place], [address], [place]. [email or web address], [address], [place], [place], [address] , tel: [phone] [facility] HYPERTENSION NOS Oct-0 4-200 6 Conversion Doctor. [address] [employer] [place], [address], [place]. [email or web address], [address], [place], [place], [address] , [place] tel: [phone] [facility] ABDMNAL PAIN UNSPCF SITEACUTE SINUSITIS NOS 0 6-200 6 Alexus France. [address], [address], [place], [place], [address], [place]. tel: [phone] [email or web address], [address], [place], [place], [address] , [place] tel: [phone] [facility] ALLERGIC RHINITIS NOSGENERAL OSTEOARTHROSIS 0-200 5 Conversion Doctor. [facility] [employer] [place], [address], [place]. [email or web address], [address], [place], [place], [address] , [place] tel: [phone] [facility] OTITIS MEDIA NOS 6-200 5 Alexus France. [address], [address], [place], [place], [address], [place]. tel: [phone] [facility], [address], [place], [place], [address] , tel: [phone] [facility] ACUTE BRONCHITIS 3 Alexus France. [address], [address], [place], [place], [address], . tel: [phone] [facility], [address], [place], [place], [address] , tel: [phone] [facility] No Information 0200 1 Alexus France. [address], [place], [place], [address], . tel: [phone] [facility], [address], [place], [place], [address] , tel: [phone] [facility] ACUTE URI NOS 0 1 Conversion Doctor. [address] [place] [address], [facility], . [facility], [address], [place], [place], [address] , tel: [phone] [facility] HX OF LEUKEMIA NEC 0 Alexus France. [address], [place], [place], [address], . tel: [phone] Family History Family Member Type Diagnosis Age At Onset No Information Immunizations Vaccine Date Status Comments 96206 - Tetanus_Diptheria_Pertussis_Tdap administered Source: Source Unspecified Payers Payer name Insurance type Covered libertarian ID Authoriza tion(s) No Information Social History Type Description Quantity Date Captured Comments Sex Male Smoking Status No Information Chief Complaint And Reason For Visit No Information Reason For Referral Reason For Referral No Information History Of Present Illness Encounter Date Complaint History Of Prese nt Illness No Information Functional Status Date Functional Assessmen t No Information Medications Administered Medication Instructions Dosage Effective Dates (start - stop) Status Comments AUGMENTIN 875-125 TABLET 1 BID - No Longer Active new rx with no addl dt 12-17-09 Instructions Date Instruction Additional Infor mation No Information Assessments Type Assessment Date No Information Patient Care Teams Name Effective Dates (start - stop) Status Members No Information
--- OUTSIDE RECORDS SUMMARY | 2024-08-05 12:42 | XMS_ITS | Continuity of Care Document ---
Author Organization [id number] Address [address] [place] [address] Phone Care Team Providers Care Carbide Powder Processor Name Role Phone No Information Unavailable Unavailable Advance Directives Directive Yes / No Effective Date File Name No Information Encounters Encounter Description Practice Location Reason(s) For Visit Diagnoses Date Provider Providers Copied on Encounter [id number],[place], [address], [place], [address], [place] tel:[phone] No Information No Information Family History Family Member Type Diagnosis Age At Onset No Information Payers Payer name Insurance type Covered constitution [...] No Information Instructions Date Instruction Additional Infor mation No Information Assessments Type Assessment Date No Information Patient Care Teams Name Effective Dates (start - stop) Status Members No Information
--- OUTSIDE RECORDS SUMMARY | 2024-08-05 12:42 | XMS_ITS | CONTINUITY OF CARE DOCUMENT ---
Author Name [email or web address] Address Unknown Organization [facility] Address [address] [place] [address] Phone [phone] Care Team Providers Care Java Sdet Name Role Phone Raz Grande MD Unavailable [phone] NATHALY ALVAREZ MD Unavailable NATHALY ALVAREZ MD Unavailable [phone] INSURANCE PROVIDERS Payer name Policy type / Coverage type [place] red democrat ID [facility] [place] [id number]
--- OUTSIDE RECORDS SUMMARY | 2024-08-05 12:42 | XMS_ITS | Referral Summary ---
Author Organization [facility] Address [address] [place] [address] Care Team Providers Care Trade Show Manager Name Role Phone Unavailable Primary Care Provider Unavailabl e Source Comments [facility],non-owned Affiliates and Associated Physician Practices is amultiple site organization consisting of ambulatory clinics and hospital sitesin [place], [place], [place] and [place]. This disclosure is being madepursuant to the Care Everywhere program and may not contain all information available regarding this patient. Last updated 18.[facility] [employer] Social History Tobacco Use Types Packs/Day Years Used Date Smoking Tobacco: Never Assessed Sex and Gender Information Value Date Recorded Sex Assigned at Not on file Gender Identity Not on file Sexual Orientation Not on file Plan of Treatment Not on file
--- OUTSIDE RECORDS SUMMARY | 2024-08-05 12:42 | XMS_ITS | Patient Health Summary ---
Author Organization [facility] Address [address] [place] [address] Care Team Providers Care Wing Coverer Name Role Phone Unavailable Primary Care Provider Unavailabl e Note from [facility],non-owned Affiliates and Associated Physician Practices is amultiple site organization consisting of ambulatory clinics and hospital sitesin [place], [place], [place] and [place]. This disclosure is being madepursuant to the Care Everywhere program and may not contain all information available regarding this patient. Last updated 18.[facility] [employer] Social History Tobacco Use Types Packs/Day Years Used Date Smoking Tobacco: Never Assessed Sex and Gender Information Value Date Recorded Sex Assigned at Not on file Gender Identity Not on file Sexual Orientation Not on file Procedures * GROSS + MICRO EXAM(Performed 06/10/2003) Results * GROSS + MICRO EXAM (06/10/2003 12:00 AM ART OBJECTS SUPERVISOR) Result CASE NUMBER [id number] Comment: ORDERING PHYSICIAN ??RAVINDER ELIAS SPECIMEN TYPE ?Antrum Biopsy Surgeon ?RAVINDER ELIAS M.D. Gross Exam ? Dr. Abhi Jay M.D. Gross Report ? COPY TO ??BI TOSCANO M.D. INDICATION FOR PROCEDURE ??ABDOMINAL PAIN, DUODENAL ULCER ON ENDOSCOPY, EVALUATE FOR HELICOBACTER PYLORI ?? OPERATION ??PANENDOSCOPY WITH BIOPSY GROSS ?? THE SPECIMEN IS RECEIVED IN A FORMALIN-FILLED CONTAINER LABELED WITH THE PATIENT'S NAME AND IDENTIFIED ANTRAL BIOPSY . ??THE SPECIMEN CONSISTS OF FOUR FRAGMENTS OF PINK MUCOSAL TISSUE. ??THE LARGEST MEASURES 3 MM. IN MAXIMUM DIMENSION. ??THE SPECIMEN IS SUBMITTED ENTIRELY IN ONE CASSETTE. RN/SP MICROSCOPIC EXAM ? MICROSCOPIC SECTIONS OF THE ANTRAL BIOPSY SHOW FRAGMENTS OF GASTRIC MUCOSA. ?? THE MUCOSA IS LINED BY ANTRAL EPITHELIUM. ??PITS TO GLANDS RATIO IS DECREASED. ??AN INCREASED NUMBER OF BOTH ACUTE AND CHRONIC INFLAMMATORY CELLS IS SEEN WITHIN THE STROMA. ??THE INFLAMMATION IS MODERATE TO SEVERE. ??MICROORGANISMS CONSISTENT WITH HELICOBACTER ARE PRESENT. ??NO MALIGNANCY IS IDENTIFIED. ?? DIAGNOSIS ? DIAGNOSIS ?? [1] STOMACH, ANTRUM, BIOPSY ?? -- ?? GASTRITIS, CHRONIC, ACTIVE, MODERATE TO SEVERE -- ?? HELICOBACTER ORGANISMS PRESENT JW/SP Released By ?RICARDO BLAND CPT Code ? 81592 MISCELLANEOUS SAMPLE S / Unknown 06/10/2003 06/10/2003 3:04 PM ART OBJECTS SUPERVISOR Historical Provider LAB - PATHOLOGY/C YTOLOGY ORDERABLES
--- OUTSIDE RECORDS SUMMARY | 2024-08-05 12:42 | XMS_ITS | Referral Summary ---
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
--- OUTSIDE RECORDS SUMMARY | 2024-08-05 12:42 | XMS_ITS | Clinical Summary ---
Author Organization [facility] Address [address] [place] [address]. 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 Gender Identity Not on file Sexual Orientation Not on file Plan of Treatment Health Maintenance Due Date Last Done Comments Colorectal Cancer Screening Colonoscopy (10 Years) 1974 Annual Physical 1977 Hepatitis C 01/04/1992 DTaP, Tdap and Td Vaccines ( 1 - Tdap) 1993 Hepatitis B Vaccines (1 of 3 - 19+ 3-dose series) 1993 Zoster Vaccines (1 of 2) 01/04/2024 COVID-19 Vaccine (1 - 2023-2 5 season) 2024 Influenza Adult (#1) 2024 Meningococcal B Vaccine Aged Out No l onger eligible based on patient's age to complete this topic Meningococcal Vaccine Aged Out No [place]am [place] eligible based on patient's age to complete this topic Pneumococcal Vaccine: Pediat rics (0 to 5 Years) and At-Risk Patients (6 to 64 Years) Aged Out No longer eligible b ased on patient's age to complete this topic RSV Immunizations Under 20 Months Aged Out No longer eligible based on patient's age to complete this topic
== END 2024-08-05 12:38 | disposition home or self-care (01) ==
PROVIDERS: Emergency Provider Nurse Practitioner; PCP Family Medicine Adolescent Medicine
DX: S67.01XA Crushing injury of right thumb, initial encounter (principal); X58.XXXA Exposure to other specified factors, initial encounter; Y99.0 Civilian activity done for income or pay; Z23 Encounter for immunization; Z87.891 Personal history of nicotine dependence
CPT/HCPCS: 29125; 73140; 90471; 90715; 99213; G0463

== ENCOUNTER 2024-08-15 09:47 | Outpatient (CLI) | payer OTHER, SELFPAY ==
--- NOTE | ~2024-08-15 | XR_ITS ---
EXAMINATION: XR finger 1st RT min 2V DATE: 08/15/2024 10:55 INDICATION: Right thumb pain. Injury. TECHNIQUE: 3 views of right thumb were obtained. COMPARISON: Right thumb radiographs 08/05/2024 FINDINGS: Alignment is normal. No fracture. There is a benign bone island in first distal phalanx. Th ere is mild osteoarthritis of first carpometacarpal joint and first metacarpophalangeal joint. IMPRESSION: 1. No fracture. Reviewed, dictated and finalized at location A. RAIT PHOTOGRAPHER IMPRESSION: 1. No fracture.
--- OUTSIDE RECORDS SUMMARY | 2024-08-15 10:41 | XMS_ITS | Clinical Summary ---
Author Organization [facility] Address [facility] [facility] [place] [address] Care Team Providers Care 4Th Grade Teacher Name Role Phone Unavailable Primary Care Provider Unavailabl e Social History Tobacco Use Types Packs/Day Years Used Date Smoking Tobacco: Never Assessed Sex and Gender Information Value Date Recorded Sex Assigned at Not on file Legal Sex Male 10:23 PM HAND MOLDER AND CASTER Gender Identity Not on file Sexual Orientation Not on file Plan of Treatment Health Maintenance Due Date Last Done Comments Colorectal Cancer Screening Colonoscopy (10 Years) 1974 Annual Physical 1977 Hepatitis C 01/04/1992 DTaP, Tdap and Td Vaccines ( 1 - Tdap) 1993 Hepatitis B Vaccines (1 of 3 - 19+ 3-dose series) 1993 Zoster Vaccines (1 of 2) 01/04/2024 COVID-19 Vaccine ( - 2023-2 5 season) 2024 Influenza Adult [...]
--- OUTSIDE RECORDS SUMMARY | 2024-08-15 10:41 | XMS_ITS | Patient Health Summary ---
Author Organization [facility] Address [address] [place] [address] Care Team Providers Care Reclamation Furnace Operator Name Role Phone Unavailable Primary Care Provider Unavailabl e Note from [facility],non-owned Affiliates and Associated Physician Practices is amultiple site organization consisting of ambulatory clinics and hospital sitesin [place], [place], [place] and [place]. This disclosure is being madepursuant to the Care Everywhere program and may not contain all information available regarding this patient. Last updated 18.[facility] Social History Tobacco Use Types Packs/Day Years Used Date Smoking Tobacco: Never Assessed Sex and Gender Information Value Date Recorded Sex Assigned at Not on file Gender Identity Not on file Sexual Orientation Not on file Procedures * GROSS + MICRO EXAM(Performed 06/10/2003) Results * GROSS + MICRO EXAM (06/10/2003 12:00 AM ANALOG IC DESIGN ENGINEER) Result CASE NUMBER [id number] Comment: ORDERING PHYSICIAN RAVINDER ELIAS SPECIMEN TYPE Antrum Biopsy Surgeon RAVINDER ELIAS M.D. Gross Exam Dr. Abhi Jay M.D. Gross Report COPY TO BI TOSCANO M.D. INDICATION FOR PROCEDURE ABDOMINAL PAIN, DUODENAL ULCER ON ENDOSCOPY, EVALUATE FOR HELICOBACTER PYLORI OPERATION PANENDOSCOPY WITH BIOPSY GROSS THE SPECIMEN IS RECEIVED IN A FORMALIN-FILLED CONTAINER LABELED WITH THE PATIENT'S NAME AND IDENTIFIED ANTRAL BIOPSY . THE SPECIMEN CONSISTS OF FOUR FRAGMENTS OF PINK MUCOSAL TISSUE. THE LARGEST MEASURES 3 MM. IN MAXIMUM DIMENSION. THE SPECIMEN IS SUBMITTED ENTIRELY IN ONE CASSETTE. RN/SP MICROSCOPIC EXAM MICROSCOPIC SECTIONS OF THE ANTRAL BIOPSY SHOW FRAGMENTS OF GASTRIC MUCOSA. THE MUCOSA IS LINED BY ANTRAL EPITHELIUM. PITS TO GLANDS RATIO IS DECREASED. AN INCREASED NUMBER OF BOTH ACUTE AND CHRONIC INFLAMMATORY CELLS IS SEEN WITHIN THE STROMA. THE INFLAMMATION IS MODERATE TO SEVERE. MICROORGANISMS CONSISTENT WITH HELICOBACTER ARE PRESENT. NO MALIGNANCY IS IDENTIFIED. DIAGNOSIS DIAGNOSIS [1] STOMACH, ANTRUM, BIOPSY -- GASTRITIS, CHRONIC, ACTIVE, MODERATE TO SEVERE -- HELICOBACTER ORGANISMS PRESENT JW/SP Released By RICARDO BLAND CPT Code 85466 MISCELLANEOUS SAMPLE S / Unknown 06/10/2003 06/10/2003 3:04 PM ANALOG IC DESIGN ENGINEER Historical Provider LAB - PATHOLOGY/C YTOLOGY ORDERABLES
--- OUTSIDE RECORDS SUMMARY | 2024-08-15 10:41 | XMS_ITS | Clinical Summary ---
Author Organization [facility] Address [address] [place] [address] Care Team Providers Care Sales Floor Associate Name Role Phone Unavailable Primary Care Provider Unavailabl e Source Comments [facility],non-owned Affiliates and Associated Physician Practices is amultiple site organization consisting of ambulatory clinics and hospital sitesin [place], [place], [place] and [place]. This disclosure is being madepursuant to the Care Everywhere program and may not contain all information available regarding this patient. Last updated 18.[facility] Social History Tobacco Use Types Packs/Day Years [...]
--- OUTSIDE RECORDS SUMMARY | 2024-08-15 10:41 | XMS_ITS | Referral Summary ---
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 Gender Identity Not on file Sexual Orientation Not on file Last Filed Vital Signs Vital Sign Reading Time Taken Comments Blood Pressure 114/76 12/15/2022 3:35 PM CDT Pulse 70 12/15/2022 3:35 PM CDT Temperature 36.9 C (98.5 F) 12/15/2022 3:35 PM CDT Respiratory Rate 16 12/15/2022 3:35 PM CDT Oxygen Saturation 99% 12/15/2022 3:35 PM CDT Inhaled Oxygen Concentration - - Weight 95.4 kg (210 lb 5.1 oz) 12/15/2022 1:32 P M CDT Height 177.8 cm (5' 10 ) 12/15/2022 1:32 PM CDT Body Mass Index 30.18 12/15/2022 1:32 PM CDT Plan of Treatment Not on file Insurance MRA Care Teams Lone Lead Lineman Relationship Specialty Start Date End Date Eron Bhatia MD [address] [place] [address] PCP - General Family Medicine 12/15/22
--- OUTSIDE RECORDS SUMMARY | 2024-08-15 10:41 | XMS_ITS | Referral Summary ---
Author Organization [facility] Address [address] [place] [address] Care Team Providers Care Advisory Intern Name Role Phone Unavailable Primary Care Provider Unavailabl e Source Comments [facility],non-owned Affiliates and Associated Physician Practices is amultiple site organization consisting of ambulatory clinics and hospital sitesin [place], [place], [place] and [place]. This disclosure is being madepursuant to the Care Everywhere program and may not contain all information available regarding this patient. Last updated 18.[facility] [employer] Social History Tobacco Use Types Packs/Day Years Used Date Smoking Tobacco: Never Assessed Sex and Gender Information Value Date Recorded Sex Assigned at Not on file Gender Identity Not on file Sexual Orientation Not on file Plan of Treatment Not on file
--- OUTSIDE RECORDS SUMMARY | 2024-08-15 10:41 | XMS_ITS | Continuity of Care Document ---
Author Organization [facility] Address [address] [address] Phone Care Team Providers Care Appraisal Manager Name Role Phone Gerry Vogt MD Unavailable Unavailable Allergies, Adverse Reactions, Alerts Substance Reaction Status Criticality No Known Allergies Active No Inform ation Medications Medication Instructions Dosage Effective Dates (start - stop) Status Comments Keflex 500 mg capsule take 1 capsule by oral route every 8 hours 500 MG - Active Walworth 5 mg-325 mg tablet take 1 or 2 tablets every 4-6 hours prn pain - Active Keflex 500 mg capsule take 1 capsule by oral route every 8 hours 500 MG - Active [facility]worth 5 mg-325 mg tablet take 1 tablet by oral route every 6 hours as needed for pain - Active Procedures Procedure Date OFFICE/OUTPATIENT VISIT EST OFFICE/OUTPATIENT VISIT EST OFFICE/OUTPATIENT VISIT EST OFFICE/OUTPATIENT VISIT [facility] Advance Directives Directive Yes / No Effective Date File Name No Information Encounters Encounter Description Practice Location Reason(s) For Visit Diagnoses Date Provider Providers Copied on Encounter OFFICE/OUTPA TIENT VISIT EST [facility], [address], [address], [place] [phone] [facility] Laceration with foreign body of left hand, subsequent encounter 7 Sin Garrett. [address] [place], [place], [address] . tel: [phone] OFFICE/OUTPA TIENT VISIT EST [facility], [address], [address], [place] [phone] [facility] Laceration with foreign body of left hand, subsequent encounter 7 Sin Garrett. [address] [place], [place], [address] . tel: [phone] OFFICE/OUTPA TIENT VISIT [facility], [address], [address], [phone] [facility] Follow Up of WC L hand (chief complaint) Laceration with foreign body of left hand, subsequent encounter 0- 7 Sin Garrett. [address] [place], [place], [address] . tel: [phone] OFFICE/OUTPA TIENT VISIT [facility], [address] [place] [address], [address], [phone] [facility] Body mass index (BMI) 36.0-36.9, adultLaceration of left hand with foreign body, initial encounter 7 Sin Garrett. [address] [place], [place], [address] . tel: [phone] Family History Family Member Type Diagnosis Age At Onset Mother Problem (finding) Alive and well Payers Payer name Insurance type Covered green party ID Authoriza tion(s) No Information Social [...]
--- OUTSIDE RECORDS SUMMARY | 2024-08-15 10:41 | XMS_ITS | Continuity of Care Document ---
Author Organization [employer] Address [address] [place] [address] Phone Care Team Providers Care Stand In Name Role Phone Edilma Vaughan MD Unavailable [...] 160MG TABS 1 QD-daily No Longer Active TOPROL XL 50 MG TABLET SA 1 QD-daily - No Longer Active 11/02/06 faxed to [facility] LEXAPRO 10 MG TABLET 1 DAILY - No Longer Active 11/02/06 faxed to [facility]. sf NEXIUM 40 MG CAPSULE 1 QD-daily - No Longer Active 11/02/06 faxed to [facility] sf ALTACE 10 MG CAPSULE 1 QD-daily - No Longer Active 05/23/06 [facility]. sf HELENA 180 MG TABLET [...] 50MG TABS 1 QD No Longer Active NEXIUM 40MG CAPS 1 QD - No Longer Active NASACORT AQ 55MCG APPLICS 1 QD - No Longer Active HELENA [...] Diagnoses Date Provider Providers Copied on Encounter [facility] [facility] [employer], [address], [place], [place], [address] , tel: [phone] [facility] No Information 1 Alexus France. [address], [address], [place], [place], [address], [place]. tel: [phone] [facility] [facility], [address], [place], [place], [address] , tel: [phone] [facility] HEADACHEBELL'S PALSY 0 Alexus France. [address], [place], [place], [address], . tel: [phone] [employer], [address], [place], [place], [address] , tel: [phone] [facility] SCREEN LIPOID DISORDERSROUTINE MEDICAL EXAMMALAISE AND FATIGUE NECSCREENING-PULM ONARY TB 0 Alexus France. [address], [address], [place], [place], [address], [place]. tel: [phone] [facility] [facility], [address], [place], [place], [address] , [place] tel: [phone] [facility] HYPERLIPIDEMIA NEC/NOS 0 [facility]. [address], [place], [address], [place]. [facility] [facility], [address], [place], [place], [address] , tel: [phone] [facility] LONG-TERM USE MEDS NEC 0 Alexus France. [address], [address], [place], [place], [address], . tel: [phone] [employer] [facility], [address], [place], [place], [address] , [place] tel: [phone] [facility] VACCINATION FOR DTP-DTAPBENIGN HYPERTENSION 9 Alexus France. [address], [address], [place], [place], [address], [place]. tel: [phone] [employer], [address], [place], [place], [address] , [place] tel: [phone] [facility] DEPRESSIVE DISORDER NEC 1200 8 [facility]. [address] [place], [address], [place]. [facility], [address], [place], [place], [address] , tel: [phone] [facility] ESOPHAGEAL REFLUX 9200 7 [facility]. [address] [place], [address], [place]. [facility] [employer], [address], [place], [place], [address] , tel: [phone] [facility] HYPERTENSION NOS Oct-0 4-200 6 [facility]. [address] [place], [address], [place]. [employer], [address], [place], [place], [address] , [place] tel: [phone] [facility] ABDMNAL PAIN UNSPCF SITEACUTE SINUSITIS NOS 0 6-200 6 Alexus France. [address], [address], [place], [place], [address], [place]. tel: [phone] [employer], [address], [place], [address] , [place] tel: [phone] [facility] ALLERGIC RHINITIS NOSGENERAL OSTEOARTHROSIS 0-200 5 Con[facility]. [facility] [place], [address], [place]. [employer], [address], [place], [place], [address] , [place] tel: [phone] [facility] OTITIS MEDIA NOS 6-200 5 Alexus France. [address], [address], [place], [place], [address], [place]. tel: [phone] [facility], [address], [place], [place], [address] , tel: [phone] [facility] ACUTE BRONCHITIS 3 Alexus France. [address], [address], [place], [place], [address], . tel: [phone] [facility], [address], [place], [place], [address] , tel: [phone] [facility] No Information 0200 1 Alexus France. [address], [address], [place], [place], [address], . tel: [phone] [facility], [address], [place], [place], [address] , tel: [phone] [facility] ACUTE URI NOS 0 1 [facility]. [address] [place] [address], [facility], . [facility], [address], [place], [place], [address] , tel: [phone] [facility] HX OF LEUKEMIA NEC 0 Alexus France. [address], [place], [place], [address], . tel: [phone] Family History Family Member Type Diagnosis Age At Onset No Information Immunizations Vaccine Date Status Comments 83836 - Tetanus_Diptheria_Pertussis_Tdap administered Source: Source Unspecified Payers [...]
--- OUTSIDE RECORDS SUMMARY | 2024-08-15 10:41 | XMS_ITS | CONTINUITY OF CARE DOCUMENT ---
Author Name praneeth adinaangela Address Unknown Organization [facility] Address [address] [place] [address] Phone [phone] Care Team Providers Care Printing Table Hand Name Role Phone Raz Grande MD Unavailable [phone] NATHALY ALVAREZ MD Unavailable [phone] NATHALY ALVAREZ MD Unavailable [phone] INSURANCE PROVIDERS Payer name Policy type / Coverage type [place] red republican ID [facility] Blue [facility] [id number]
--- OUTSIDE RECORDS SUMMARY | 2024-08-15 10:41 | XMS_ITS | Continuity of Care Document ---
Author Organization [id number] Address [address] [place] [address] Phone Care Team Providers Care Guard Sergeant Name Role Phone No Information Unavailable Unavailable Advance Directives Directive Yes / No Effective Date File Name No Information Encounters Encounter Description Practice Location Reason(s) For Visit Diagnoses Date Provider Providers Copied on Encounter [id number] [employer] [facility] [employer], [address], [place], [address], [place] tel:[phone] No Information No Information Family History Family [...]
--- OUTSIDE RECORDS SUMMARY | 2024-08-15 10:41 | XMS_ITS | Clinical Summary ---
Author Organization 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
== END 2024-08-15 09:48 | disposition home or self-care (01) ==
PROVIDERS: PCP Family Medicine Adolescent Medicine; Visit Provider Physician Assistant Surgical
DX: M79.644 Pain in right finger(s) (principal)
CPT/HCPCS: 73140